=== PATIENT | female | born 1940 | race Caucasian/White ===

== ENCOUNTER 2019-06-30 10:10 | Emergency (ER) | payer MEDICARE ==
--- NOTE | 2019-06-30 11:24 | ED ---
Upper Extremity Pain - HPI Summary HPI Summary: The patient is a 78 y/o F presenting to [facility] accompanied by daughter with a chief complaint of immediate onset left humeral pain following a mechanical fall this morning around 0800. She reports that she had a drawer open in the kitchen that was near the ground, and she tripped over the drawer, causing her to sustain a fall to which she landed on the left shoulder. She is now experiencing decreased ROM in the humeral joint with pain rated 4/10 in severity at rest in the shoulder. There is no pain in the elbow, and she denies any numbness or tingling in the arm or hand. Movement aggravates the pain to 8/ 10 in severity. She has taken Motrin and a Xanax at 0830 to mildly relieve the pain. She does not take anticoagulants. PMHx: HTN. HLD, left femoral fracture with repair, right humeral fracture. Nonsmoker, daily EtOH, no substance use. Medications reviewed. Allergies noted. - History of Current Complaint Chief Complaint: EDShoulderClavicGerardoj Stated Complaint: SHOULDER INJ AFTER FALL PER PT Time Seen by Provider: 06/30/19 10:55 Hx Obtained From: Patient Mechanism Of Injury: Fall From A Standing Position Onset/Duration: Started Hours Ago - 0800 this morning, Still Present Timing: Lasting Hours Severity Initially: Severe Severity Currently: Severe Pain Location: Shoulder - left Character: Aching Aggravating Factor(s): Movement Alleviating Factor(s): Rest, Other - Ibuprofen and Xanax Associated Signs & Symptoms: Negative: Numbness/Tingling - in the left arm or hand, Other - left elbow pain - Allergies/Home Medications Allergies/Adverse Reactions: Allergies Allergy/AdvReac Type Severity Reaction Status Date / Time No Known Allergies Allergy Verified 06/30/19 10:14 PMH/Surg Hx/FS Hx/Imm Hx Endocrine/Hematology History: Denies: Hx Diabetes Cardiovascular History: Reports: Hx Hypercholesterolemia, Hx Hypertension Musculoskeletal History: Reports: Other Musculoskeletal History - left femoral fracture, right humeral fracture - Surgical History Surgical History: Yes Surgery Procedure, Year, and Place: femoral fracture repair Infectious Disease History: No Infectious Disease History: Denies: Traveled Outside the [place] in Last 30 Days - Family History Known Family History: Positive: Hypertension - Social History Alcohol Use: Daily Hx Substance Use: No Substance Use Type: Reports: None Hx Tobacco Use: No Smoking Status (MU): Never Smoked Tobacco Review of Systems Positive: Decreased ROM - left shoulder, Other - pain in in the left shoulder; Negative: pain in left elbow Negative: Numbness - or tingling in the left arm or hand All Other Systems Reviewed And Are Negative: Yes Physical Exam - Summary Physical Exam Summary: Constitutional: Well-developed, Well-nourished, Alert. (-) Distressed Skin: Warm, Dry HENT: Normocephalic; Atraumatic Eyes: Conjunctiva normal Neck: Musculoskeletal ROM normal neck. (-) JVD, (-) Stridor, (-) Nuchal rigidity Cardio: Rhythm regular, rate normal, Heart sounds normal; Intact distal pulses; Radial pulses are 2+ and symmetric. (-) Murmur Pulmonary/Chest wall: Effort normal. (-) Respiratory distress, (-) Wheezes, (-) Rales Abd: Soft, (-) tenderness, (-) Distension, (-) Guarding, (-) Rebound Musculoskeletal: Tenderness with mild swelling over the left proximal humerus, No tenderness of distal humerus, elbow, or forearm. Lymph: (-) Cervical adenopathy Neuro: Alert, Oriented x3. SILT R arm Psych: Mood and affect Normal Triage Information Reviewed: Yes Vital Signs On Initial Exam: Initial Vitals Temp Pulse Resp BP Pulse Ox 98.4 F 87 16 123/65 98 06/30/19 10:11 06/30/19 10:11 06/30/19 10:11 06/30/19 10:11 06/30/19 10:11 Vital Signs Reviewed: Yes Procedures - Sedation Patient Received Moderate/Deep Sedation with Procedure: No Diagnostics - Vital Signs Vital Signs Temp Pulse Resp BP Pulse Ox 06/30/19 10:11 98.4 F 87 16 123/65 98 - Laboratory Lab Statement: Any lab studies that have been ordered have been reviewed, and results considered in the medical decision making process. - Radiology Left Shoulder XR Radiology Interpretation Completed By: Radiologist Summary of Radiographic Findings: Impression: 1. Complex fracture of the left humeral head with impaction at the surgical neck. 2. Osteopenia. 3. Moderate acromioclavicular osteoarthropathy. ED physician has reviewed this report. Re-Evaluation - Re-Evaluation First Eval Re-Evaluation Time: 12:29 Change: Improved Comment: She is feeling safe for discharge. Immobilizer will be placed. Course/Dx - Course Course Of Treatment: 78 y/o F p/w L shoulder pain found to have a complex left humeral neck fracture. - PE with tenderness near the left proximal humerus, no elbow or forearm tenderness. Range of motion limited secondary to pain. Neurovascularly intact. X-ray shows comminuted and complex proximal humeral neck fracture. Discussed with orthopedics, patient wants follow-up in [place]. Given a shoulder immobilizer. Tylenol for pain. - Diagnoses Provider Diagnoses: Fracture of surgical neck of left humerus - Physician Notifications Discussed Care of Patient With: Cash Henson - orthopedics Time Discussed With Above Provider: 11:57 Instructed by Provider To: Other - I discussed the patient's case with Dr. Henson, and he recommends a shoulder immobilizer, and she can follow up in [place] as she requests. Discharge ED - Sign-Out/Discharge Documenting (check all that apply): Patient Departure - Patient will be discharged home. - Discharge Plan Condition: Stable Disposition: HOME Patient Education Materials: Proximal Humerus Fracture (ED) Referrals: [facility] PHYSICIAN REFERRAL [Outside] - 3 Days Cash Henson MD [Medical Doctor] - If Needed Additional Instructions: You were seen in the emergency department for a proximal humerus fracture. Please wear your immobilizer, follow up with orthopedics. Please follow up with your primary care doctor in the next 2-3 days and return to the emergency department for worsening pain, numbness or tingling in your arm or hand or concerning symptoms. It was a pleasure taking care of you today. - Billing Disposition and Condition Condition: STABLE Disposition: Home - Attestation Statements Document Initiated by Ulisses: Yes Documenting Scribe: Grace Inman Provider For Whom Ulisses is Documenting (Include Credential): Dr. Daphnie Stock MD Scribe Attestation: I, Grace Inman, scribed for Dr. Daphnie Stock MD on 06/30/19 at 1240. Scribe Documentation Reviewed: Yes Provider Attestation: The documentation as recorded by the Grace ramos accurately reflects the service I personally performed and the decisions made by me, Dr. Daphnie Stock MD Status of Scribe Document: Viewed
[2019-06-30] MEDS ORDERED: Acetaminophen TAB* 325 MG PO ONE (11:29)
[2019-06-30 12:46] VITALS: BP 127/71
== END 2019-06-30 12:40 | disposition home or self-care (01) ==
LOC: ED 10:10
DX: S42.212A Unspecified displaced fracture of surgical neck of left humerus, initial encounter for closed fracture (principal); W18.09XA Striking against other object with subsequent fall, initial encounter; Y92.000 Kitchen of unspecified non-institutional (private) residence as the place of occurrence of the external cause; M85.812 Other specified disorders of bone density and structure, left shoulder; M19.012 Primary osteoarthritis, left shoulder; I10 Essential (primary) hypertension
CPT/HCPCS: 99282; A9270-GY

== ENCOUNTER 2024-02-25 18:29 | Inpatient (IN) ==
[2024-02-25 19:52] LABS: Hematocrit 37.2 % (35-45); Hemoglobin 12.8 g/dL (11.5-14.3); Mean Corpuscular Hemoglobin 30.7 pg (27-33); Mean Corpuscular Hgb Conc 34.3 g/dL (31-36); Mean Corpuscular Volume 89.4 fL (80-97); Red Blood Count 4.16 10^6/uL (3.63-4.92); Red Cell Distribution Width 14.3 % (12-17)
[2024-02-25] MEDS: fentaNYL 100 mcg/2 ml 50 MCG/ML VIAL IV SLOW PU ONE ×2 (19:54→23:00)
[2024-02-25 20:29] LABS: ABS Lymphocytes 1.1 10^3/uL (1.0-4.8); ABS Monocytes 0.4 10^3/uL (0.0-0.9); ABS Neutrophils 2.5 10^3/uL (1.5-7.6); Eosinophil % 1.2 %; Giant Platelets Present; Lymphocyte % 27.7 %; Mean Platelet Volume 9.7 fL (7.5-11.2); Nucleated Red Blood Cells % 0.1 %/100WBC (0.0-0.8); Platelet Count 181 10^3/uL (150-450); White Blood Count 4.1 10^3/uL (3.8-11.8)
[2024-02-25 20:30] LABS: Albumin 4.3 g/dL (3.2-5.2); Albumin/Globulin Ratio 1.7 (1-3); Calcium 9.3 mg/dL (8.6-10.3); Creatinine, Serum 0.74 mg/dL (0.51-0.95); Globulin 2.6 g/dL (2-4); Potassium 3.9 mmol/L (3.5-5.0); Total Bilirubin 0.4 mg/dL (0.2-1.0); Total Protein 6.9 g/dL (6.4-8.9); eGFR CKD-EPI 79.7 (>60)
[2024-02-25] MEDS: Morphine 4 MG/ML VIAL (1 ml) IV ONE (21:40)
[2024-02-25] MEDS ORDERED: fentaNYL 100 mcg/2 ml 50 MCG/ML VIAL IV SLOW PU PRN (22:27)
[2024-02-25] MEDS ORDERED: Ondansetron 4 mg VIAL 2 MG/ML 2 ml VIAL IV PRN (22:40)
[2024-02-25] MEDS: Acetaminophen IV 1 GM/100ML 1,000 MG/100 ML BAG IV ONE (23:01)
[2024-02-25 23:11] LABS: Magnesium 1.8 mg/dL (1.9-2.7)
[2024-02-25 23:26] LABS: TSH Ultra Thyroid Stim Horm 3.32 mcIU/mL (0.34-5.60)
[2024-02-26] MEDS: Magnesium Sulfate 2 gm BAG 2 GM/50 ML BAG IVPB ONE (00:39)
[2024-02-26 00:56] LABS: INR 1.05 (0.83-1.13)
[2024-02-26] MEDS: fentaNYL 100 mcg/2 ml 50 MCG/ML VIAL IV SLOW PU PRN (02:37)
[2024-02-26] MEDS: Acetaminophen IV 1 GM/100ML 1,000 MG/100 ML BAG IV PRN (05:00)
[2024-02-26] MEDS: Pantoprazole VIAL 40 MG VIAL IV SCH (07:17)
[2024-02-26] MEDS ORDERED: fentaNYL 100 mcg/2 ml 50 MCG/ML VIAL IV PRN (08:51)
[2024-02-26] MEDS ORDERED: Naloxone 0.4 mg VIAL 0.4 mg/ml 1 ml VIAL IV PRN (08:51)
[2024-02-26] MEDS ORDERED: Ondansetron 4 mg VIAL 2 MG/ML 2 ml VIAL IV PRN (08:51)
[2024-02-26] MEDS ORDERED: Valsartan/HCTZ 80/12.5(NF) TAB PO SCH (09:00)
[2024-02-26] MEDS ORDERED: fentaNYL 100 mcg/2 ml 50 MCG/ML VIAL ONE (09:38)
[2024-02-26] MEDS ORDERED: Rocuronium 50 mg VIAL 10 mg/ml 5 ml VIAL (50 mg) ONE (09:39)
[2024-02-26] MEDS ORDERED: Dexmedetomidine 200 mcg/2 ml 2 ml VIAL (200 mcg) ONE (10:24)
[2024-02-26] MEDS ORDERED: Dexamethasone IV 4 MG/ML VIAL 1 ml VIAL ONE (10:24)
[2024-02-26] MEDS ORDERED: Ondansetron 4 mg VIAL 2 MG/ML 2 ml VIAL ONE (10:24)
[2024-02-26] MEDS ORDERED: ceFAZolin VIAL VIAL ONE ×3 (10:42→10:46)
[2024-02-26] MEDS ORDERED: Metoprolol Tartrate 5 mg VIAL 5 ml VIAL (1 mg/ml) ONE (11:04)
[2024-02-26] MEDS ORDERED: Phenylephrine 40 mcg/mL 10mL (400mcg) SYRINGE ONE (11:04)
[2024-02-26] MEDS ORDERED: Lidocaine 1% w EPI 1:200,000 SDV 30 ML VIAL ONE (11:37)
[2024-02-26] MEDS ORDERED: Senna TAB 8.6 mg TAB PO PRN (13:34)
[2024-02-26] MEDS: ceFAZolin 1 GM ADVAN 1 GM in NS 0.9% 50 ML 50 ML IVPB SCH (18:27)
[2024-02-26] MEDS: Magnesium Hydroxide LIQ 30 ML UDC PO SCH (20:15)
[2024-02-27 05:46] LABS: Hematocrit 24.6 % (35-45); Hemoglobin 8.5 g/dL (11.5-14.3)
[2024-02-27 06:39] LABS: Calcium 7.8 mg/dL (8.6-10.3); Creatinine, Serum 1.19 mg/dL (0.51-0.95); Magnesium 2.1 mg/dL (1.9-2.7); Potassium 4.4 mmol/L (3.5-5.0); eGFR CKD-EPI 45.1 (>60)
[2024-02-27] MEDS: NS 0.9% 1000 ml BAG 1,000 ML IV SCH (08:31)
[2024-02-27] MEDS: Enoxaparin 30 MG/0.3 ML SYR SUBCUT SCH (12:10)
[2024-02-27] MEDS: Magnesium Hydroxide LIQ 30 ML UDC PO PRN (21:03)
[2024-02-27] MEDS: Polyethylene Glycol 3350 17 GM PACKET PO PRN (21:03)
[2024-02-28 06:56] LABS: Hematocrit 21.3 % (35-45); Hemoglobin 7.5 g/dL (11.5-14.3)
[2024-02-28 07:16] LABS: Calcium 7.6 mg/dL (8.6-10.3); Creatinine, Serum 0.75 mg/dL (0.51-0.95); Potassium 4.1 mmol/L (3.5-5.0); eGFR CKD-EPI 78.5 (>60)
[2024-02-28 13:49] LABS: Hematocrit 19.6 % (35-45); Hemoglobin 6.9 g/dL (11.5-14.3)
[2024-02-28 21:15] LABS: Hematocrit 25.1 % (35-45); Hemoglobin 8.3 g/dL (11.5-14.3)
[2024-02-29 06:18] LABS: ABS Eosinophils 0.1 10^3/uL (0.0-0.5); ABS Lymphocytes 1.1 10^3/uL (1.0-4.8); ABS Monocytes 0.6 10^3/uL (0.0-0.9); ABS Neutrophils 3.6 10^3/uL (1.5-7.6); Eosinophil % 1.2 %; Hematocrit 24.1 % (35-45); Hemoglobin 8.2 g/dL (11.5-14.3); Lymphocyte % 20.7 %; Mean Corpuscular Hemoglobin 29.5 pg (27-33); Mean Corpuscular Hgb Conc 33.9 g/dL (31-36); Mean Corpuscular Volume 86.8 fL (80-97); Mean Platelet Volume 9.2 fL (7.5-11.2); Platelet Count 126 10^3/uL (150-450); Red Blood Count 2.78 10^6/uL (3.63-4.92); Red Cell Distribution Width 16.9 % (12-17); White Blood Count 5.5 10^3/uL (3.8-11.8)
[2024-02-29 07:03] LABS: Calcium 7.5 mg/dL (8.6-10.3); Creatinine, Serum 0.62 mg/dL (0.51-0.95); Potassium 4.1 mmol/L (3.5-5.0); eGFR CKD-EPI 87.8 (>60)
[2024-02-29 13:42] VITALS: BP 118/50
== END 2024-02-29 15:33 | disposition home or self-care (01) | DRG 481 ==
LOC: ED 18:29 → EDHOLD 22:51 → SUATTDRO 22:51 → AA 02-26 06:55 → SSU 02-26 13:27
PROVIDERS: ADMIT Internal Medicine; ATTEND Orthopaedic Surgery